=== PATIENT | female | born 1980 | race Caucasian/White ===

== ENCOUNTER 2019-04-09 15:57 | Outpatient (CLI) | payer BC, MEDICAID | END 2019-04-09 22:10 | disposition home or self-care (01) | LOC: OBT 15:57 → L-D 15:59 → OBT 22:10 | DX: O26.892 Other specified pregnancy related conditions, second trimester (principal); Z3A.26 26 weeks gestation of pregnancy; M79.606 Pain in leg, unspecified | CPT/HCPCS: 76815; 93970 ==